=== PATIENT | male | born 1970 | race Caucasian/White ===

== ENCOUNTER 2016-12-11 17:32 | Inpatient (IN) | payer OTHER ==
[~2016-12-11] VITALS: Ht 167.6 cm; Wt 79.2 kg
[~2016-12-11 17:32] MED LIST: BACL10TA4 PO; DILT60TA94 PO; LISI-420 PO; SERT50TA1 PO
[2016-12-11 17:36] VITALS: BP 152/108
[2016-12-11] MEDS ORDERED: [UNRECOGNIZED DRUG - CODE] PO (18:07)
[2016-12-11] MEDS ORDERED: METO25TA PO (18:07)
[2016-12-11 18:51] LABS: HEMOGLOBIN 14.5 g/dL (12.0-18.0); LYMPHOCYTES % (AUTO) 28.7 % (20.5-51.1); MEAN CORPUSCULAR HEMOGLOBIN 30 pg (27-31); MEAN CORPUSCULAR HGB CONC 32 g/dL (33-37); MEAN CORPUSCULAR VOLUME 93 fL (80-94); NEUTROPHILS % (AUTO) 59.2 % (42.2-75.2); PLATELET COUNT (AUTO) 218 K/uL (140-450); RED CELL DISTRIBUTION WIDTH 12.2 % (11.6-13.7); WHITE BLOOD COUNT (AUTO) 8.5 K/uL (4.8-10.8)
[2016-12-11 18:52] LABS: BASOPHILS # (AUTO) 0.1 K/uL (0.00-0.22); BASOPHILS % (AUTO) 1.3 % (0.0-2.0); EOSINOPHILS # (AUTO) 0.3 K/uL (0-0.4); LYMPHOCYTES # (AUTO) 2.4 K/uL (2.0-11.5); MONOCYTES # (AUTO) 0.7 K/uL (0.8-1.0); MONOCYTES % (AUTO) 7.8 % (1.7-9.3)
[2016-12-11 19:03] LABS: ANION GAP 11.9 (8-16); CALCIUM 8.8 mg/dL (8.5-10.1); CARBON DIOXIDE 29.1 mmol/L (21-32); CREATININE 1.2 mg/dL (0.6-1.3); TOTAL BILIRUBIN 0.6 mg/dL (0.0-1.0); TOTAL PROTEIN, SERUM 7.7 g/dL (6.4-8.2)
[2016-12-11 19:04] LABS: ALBUMIN 4.3 g/dL (3.4-5.0)
[2016-12-11 19:10] LABS: INR 1.1 (0.8-1.2); PARTIAL THROMBOPLASTIN TIME 26.3 secs (22-35.6); PROTHROMBIN TIME 10.3 secs (10.8-13.4)
[2016-12-11] MEDS ORDERED: ASPIRIN 325 MG TAB PO ONE (19:35)
[2016-12-11] MEDS ORDERED: ACETAMINOPHEN 325 MG TAB PO PRN (19:50)
[2016-12-11] MEDS ORDERED: HYDROcodone/APAP 5/325 MG 1 TAB TAB PO PRN (19:50)
[2016-12-11] MEDS ORDERED: ONDANSETRON 4 MG/2 ML VIAL IVP PRN (19:50)
[2016-12-11] MEDS ORDERED: BACLOFEN 10 MG TAB PO PRN (19:55)
[2016-12-11] MEDS: NACL 0.9% 1,000 ML IV SCH (20:25)
[2016-12-11 20:27] LABS: APPEARANCE,URINE CLEAR (CLEAR); BILIRUBIN,URINE NEGATIVE (NEGATIVE); BLOOD, URINE TRACE-L (NEGATIVE); COLOR,URINE YELLOW (YELLOW); LEUKOCYTE ESTERASE ,URINE NEGATIVE (NEGATIVE); NITRITE, URINE NEGATIVE (NEGATIVE); PROTEIN,URINE NEGATIVE (NEGATIVE); UGLUCOSE NEGATIVE (NEGATIVE); UROBILINOGEN,URINE 0.2 EU/dL (0.2 - 1)
[2016-12-11 20:51] LABS: BACTERIA,URINE RARE /HPF (None Seen); MUCUS,URINE 3+ /LPF (None Seen); RBC,URINE 0-3 /HPF (0-5); SQUAMOUS EPITHELIAL CELL,UR 0-3 /LPF (0-3 (FEW)); WBC,URINE 0-3 /HPF (0-5)
[2016-12-11 21:09] LABS: CHOL/HDL RATIO 6.1 (1-4.5)
[2016-12-11 21:09] LABS: AMPHETAMINE, URINE NEGATIVE ng/ml (NEG <=1000); BARBITURATE, URINE NEGATIVE ng/ml (NEG <=200); BENZODIAZEPINE, URINE NEGATIVE ng/mL (NEG <=200); CANNABINOID, URINE NEGATIVE ng/mL (NEG <=50); COCAINE, URINE NEGATIVE ng/mL (NEG <=300); OPIATE, URINE NEGATIVE ng/mL (NEG <=2000); PHENCYCLIDINE SCREEN,URINE NEGATIVE ng/mL (NEG <=25)
[2016-12-11 21:20] LABS: FREE T4 (FREE THYROXINE) 0.75 ng/dL (0.76-1.46); THYROID STIMULATING HORMONE 2.84 uIU/mL (0.34-3.76)
[2016-12-12] VITALS: BP 114/74
[2016-12-12 04:00] VITALS: BP 116/76
[2016-12-12] MEDS: NACL 0.9% 1,000 ML IV SCH ×2 (04:06→13:25)
[2016-12-12 06:56] LABS: ALBUMIN 3.6 g/dL (3.4-5.0); ANION GAP 8.9 (8-16); CALCIUM 7.9 mg/dL (8.5-10.1); CARBON DIOXIDE 29.9 mmol/L (21-32); PHOSPHORUS 3.4 mg/dL (2.5-4.9); POTASSIUM 3.8 mmol/L (3.5-5.1); TOTAL BILIRUBIN 0.5 mg/dL (0.0-1.0); TOTAL PROTEIN, SERUM 6.9 g/dL (6.4-8.2)
[2016-12-12 07:02] LABS: BASOPHILS # (AUTO) 0.2 K/uL (0.00-0.22); BASOPHILS % (AUTO) 2.1 % (0.0-2.0); EOSINOPHILS # (AUTO) 0.3 K/uL (0-0.4); EOSINOPHILS % (AUTO) 4.2 % (0.0-4.0); HEMATOCRIT 40.8 % (36-52); HEMOGLOBIN 13.8 g/dL (12.0-18.0); LYMPHOCYTES # (AUTO) 2.5 K/uL (2.0-11.5); LYMPHOCYTES % (AUTO) 31.7 % (20.5-51.1); MEAN CORPUSCULAR HEMOGLOBIN 31 pg (27-31); MEAN CORPUSCULAR HGB CONC 34 g/dL (33-37); MEAN CORPUSCULAR VOLUME 91 fL (80-94); MONOCYTES # (AUTO) 0.9 K/uL (0.8-1.0); MONOCYTES % (AUTO) 10.7 % (1.7-9.3); NEUTROPHILS # (AUTO) 4.1 K/uL (1.8-7.7); NEUTROPHILS % (AUTO) 51.3 % (42.2-75.2); PLATELET COUNT (AUTO) 195 K/uL (140-450); RED BLOOD CELL COUNT(AUTO) 4.48 MIL/uL (4.20-6.10); RED CELL DISTRIBUTION WIDTH 12.2 % (11.6-13.7)
[2016-12-12 08:00] VITALS: BP 129/90
[2016-12-12] MEDS: ATORVASTATIN 20 MG TAB PO SCH (08:00)
[2016-12-12] MEDS: ASPIRIN 81 MG TAB.CHEW PO SCH (08:00)
[2016-12-12] MEDS: METOPROLOL 50 MG TAB PO SCH ×2 (08:01→17:02)
[2016-12-12] MEDS ORDERED: LISINOPRIL 20 MG TAB PO SCH (09:00)
[2016-12-12 12:00] VITALS: BP 134/90
[2016-12-12 16:00] VITALS: BP 135/86
[2016-12-12] MEDS ORDERED: ALBUTEROL SULFATE/IPRATROPIU 3 ML SOL IH PRN (17:25)
[2016-12-12] MEDS ORDERED: MECLIZINE 25 MG TAB PO PRN (17:55)
[2016-12-12] MEDS: ALBUTEROL SULFATE/IPRATROPIU 3 ML SOL IH SCH (18:57)
[2016-12-12 20:00] VITALS: BP 125/80
[2016-12-12] MEDS: LISINOPRIL 20 MG TAB PO SCH (20:03)
[2016-12-13] VITALS: BP 118/76
[2016-12-13] MEDS: ALBUTEROL SULFATE/IPRATROPIU 3 ML SOL IH SCH ×2 (01:16→07:34)
[2016-12-13 04:00] VITALS: BP 123/78
[2016-12-13 06:14] LABS: BASOPHILS # (AUTO) 0.2 K/uL (0.00-0.22); BASOPHILS % (AUTO) 1.9 % (0.0-2.0); EOSINOPHILS # (AUTO) 0.3 K/uL (0-0.4); HEMATOCRIT 41.9 % (36-52); HEMOGLOBIN 13.9 g/dL (12.0-18.0); LYMPHOCYTES # (AUTO) 2.3 K/uL (2.0-11.5); LYMPHOCYTES % (AUTO) 26.9 % (20.5-51.1); MEAN CORPUSCULAR HEMOGLOBIN 30 pg (27-31); MEAN CORPUSCULAR HGB CONC 33 g/dL (33-37); MEAN CORPUSCULAR VOLUME 91 fL (80-94); MONOCYTES # (AUTO) 0.7 K/uL (0.8-1.0); MONOCYTES % (AUTO) 7.7 % (1.7-9.3); NEUTROPHILS # (AUTO) 5.2 K/uL (1.8-7.7); NEUTROPHILS % (AUTO) 60.5 % (42.2-75.2); PLATELET COUNT (AUTO) 183 K/uL (140-450); RED BLOOD CELL COUNT(AUTO) 4.61 MIL/uL (4.20-6.10); RED CELL DISTRIBUTION WIDTH 11.9 % (11.6-13.7); WHITE BLOOD COUNT (AUTO) 8.7 K/uL (4.8-10.8)
[2016-12-13 06:36] LABS: ANION GAP 12.9 (8-16); CALCIUM 8.1 mg/dL (8.5-10.1); CARBON DIOXIDE 27.2 mmol/L (21-32); CREATININE 1.1 mg/dL (0.6-1.3); POTASSIUM 4.1 mmol/L (3.5-5.1)
[2016-12-13 06:42] LABS: MAGNESIUM 1.8 mg/dL (1.8-2.4); PHOSPHORUS 3.9 mg/dL (2.5-4.9)
[2016-12-13 08:00] VITALS: BP 123/81
[2016-12-13] MEDS ORDERED: METOPROLOL 50 MG TAB PO SCH (08:00)
[2016-12-13] MEDS: ATORVASTATIN 20 MG TAB PO SCH (08:30)
[2016-12-13] MEDS: LISINOPRIL 20 MG TAB PO SCH (08:30)
[2016-12-13] MEDS: ASPIRIN 81 MG TAB.CHEW PO SCH (08:31)
[2016-12-13 09:09] LABS: T4 (THYROXINE) 6.6 ug/dL (4.5-12.0)
[2016-12-13] MEDS ORDERED: MECL-272 PO (10:42)
[2016-12-13] MEDS ORDERED: ATOR20TA40 PO (10:42)
[2016-12-13] MEDS ORDERED: ASPI81CT27 PO (10:42)
[2016-12-13 12:44] LABS: HEMOGLOBIN A1C 5.8 % (4.8-5.6)
== END 2016-12-13 12:30 | disposition home or self-care (01) | DRG 65 ==
LOC: MED 17:32 → MTU 20:01
PROVIDERS: ADMIT Family Medicine; ATTEND Family Medicine
DX: I63.9 Cerebral infarction, unspecified (principal); I69.354 Hemiplegia and hemiparesis following cerebral infarction affecting left non-dominant side; J45.909 Unspecified asthma, uncomplicated; G90.9 Disorder of the autonomic nervous system, unspecified; I10 Essential (primary) hypertension; J44.9 Chronic obstructive pulmonary disease, unspecified; M62.838 Other muscle spasm; E78.5 Hyperlipidemia, unspecified
CPT/HCPCS: 36415; 70450; 71010; 80048; 80053; 80305; 81001; 82040; 83036; 83735; 84100; 84436; 84439; 84443; 84479; 84484; 85025; 85610; 85730; 87081; 93880; 94640; 97110; 99285; J7030; J7620; Q0092

== ENCOUNTER 2017-12-24 12:40 | Inpatient (IN) | payer OTHER ==
[~2017-12-24] VITALS: Ht 167.6 cm; Wt 87.1 kg
[~2017-12-24 12:40] MED LIST changes: +AMLO5TAB PO; +ATOR20TA40 PO; +CITA20TA15 PO; -DILT60TA94 PO; +ELA25 PO; +MECL-272 PO; +METO25TA PO; +NAPR-1641 PO; -SERT50TA1 PO; +WARF6TAB PO
[2017-12-24 12:53] VITALS: BP 138/90
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
[2017-12-24 14:34] LABS: BASOPHILS # (AUTO) 0.1 K/uL (0.00-0.22); BASOPHILS % (AUTO) 0.9 % (0.0-2.0); EOSINOPHILS # (AUTO) 0.2 K/uL (0-0.4); EOSINOPHILS % (AUTO) 3.1 % (0.0-4.0); HEMATOCRIT 41.9 % (36-52); LYMPHOCYTES # (AUTO) 2.4 K/uL (2.0-11.5); MEAN CORPUSCULAR HEMOGLOBIN 30 pg (27-31); MEAN CORPUSCULAR HGB CONC 34 g/dL (33-37); MEAN CORPUSCULAR VOLUME 90.9 fL (80-94); MONOCYTES # (AUTO) 0.7 K/uL (0.8-1.0); MONOCYTES % (AUTO) 9.6 % (1.7-9.3); NEUTROPHILS # (AUTO) 3.7 K/uL (1.8-7.7); NEUTROPHILS % (AUTO) 52.4 % (42.2-75.2); PLATELET COUNT (AUTO) 199 K/uL (140-450); RED BLOOD CELL COUNT(AUTO) 4.61 MIL/uL (4.20-6.10); RED CELL DISTRIBUTION WIDTH 13.2 % (11.6-13.7)
[2017-12-24 14:43] LABS: ANION GAP 10.5 (8-16); CARBON DIOXIDE 30.1 mmol/L (21-32); CREATININE 1.1 mg/dL (0.7-1.3); POTASSIUM 4.6 mmol/L (3.5-5.1)
[2017-12-24 14:50] LABS: ALBUMIN 4.1 g/dL (3.4-5.0); TOTAL BILIRUBIN 0.6 mg/dL (0.0-1.0)
--- NOTE | 2017-12-24 14:50 | NUR ---
Pt resting comfortably on the hospital bed at this time with at the bedside.
[2017-12-24 15:08] LABS: PROTHROMBIN TIME 15.4 secs (10.8-13.4)
[2017-12-24 15:26] LABS: APPEARANCE,URINE CLEAR (CLEAR); BILIRUBIN,URINE NEGATIVE (NEGATIVE); BLOOD, URINE NEGATIVE (NEGATIVE); COLOR,URINE YELLOW (YELLOW); LEUKOCYTE ESTERASE ,URINE NEGATIVE (NEGATIVE); NITRITE, URINE NEGATIVE (NEGATIVE); PH,URINE 5.5 (5.0-9.0); UGLUCOSE NEGATIVE (NEGATIVE)
[2017-12-24] MEDS ORDERED: ACETAMINOPHEN 325 MG TAB PO PRN (15:35)
[2017-12-24] MEDS ORDERED: HYDROcodone/APAP 7.5/325 MG 1 TAB PO PRN (15:35)
[2017-12-24] MEDS ORDERED: DOCUSATE SODIUM 100 MG GELCAP PO PRN (15:35)
[2017-12-24] MEDS ORDERED: ONDANSETRON 4 MG/2 ML VIAL IM/IVP PRN (15:35)
--- NOTE | 2017-12-24 15:58 | NUR ---
Pt resting comfortably in the bed at this time. Pt needs met. Will continue to monitor.
[2017-12-24] MEDS ORDERED: MECLIZINE 25 MG TAB PO PRN (16:10)
[2017-12-24 16:20] LABS: CHOL/HDL RATIO 3.2 (1-4.5); FREE T4 (FREE THYROXINE) 2.07 ng/dL (0.76-1.46); PHOSPHORUS 4.9 mg/dL (2.5-4.9); THYROID STIMULATING HORMONE 2.25 uIU/mL (0.34-3.74)
[2017-12-24] MEDS ORDERED: BACLOFEN 10 MG TAB PO SCH (17:00)
[2017-12-24] MEDS ORDERED: HYDR200T94 PO (17:05)
[2017-12-24] MEDS ORDERED: SYN.05 PO (17:05)
[2017-12-24] MEDS ORDERED: ALBUTEROL SULFATE/IPRATROPIU 3 ML SOL IH PRN (17:10)
--- NOTE | 2017-12-24 17:25 | NUR ---
Patient will be admitted to care of [facility] Charge nurse. Admited to Tele. Will go to room 111B. Belongings list completed. Pt tolerated transition well.
--- NOTE | 2017-12-24 17:42 | NUR ---
RECEIVED NEW PT FROM ER UNDER THE CARE OF DR VICTORIA WITH A DX OF SYNCOPE . PATIENT A/OX4 NO S/S OF RESP DISTRESS NOTED ABLE TO MAKE NEEDS KNOWN . IV SITE LEFT AC GAUGE 20 INTACT AND PATIENT. SMALL SKIN TEAR ON HEAD NOTED S/P FALL AT HOME . UNIT ORIENTATION GIVEN SAFETY HAS BEEN TAUGHT ,BED ALARM ON. PLAN OF CARE DISCUSSED WITH THE PATIENT VITALS STABLE WILL CONTINUE TO MONITOR.
[2017-12-24] MEDS: METOPROLOL 25 MG TAB PO SCH (17:54)
[2017-12-24] MEDS: NACL 0.9% 1,000 ML IV SCH (17:54)
--- NOTE | 2017-12-24 17:58 | NUR ---
DUE MEDS GIVEN TOLERATED WELL
--- NOTE | 2017-12-24 18:15 | NUR ---
RECEIVED REPORT AT PT BEDSIDE FROM DAY SHIFT CLINICAL DIETITIAN ALEM, FOR CONTINUITY OF CARE. PATIENT IS AWAKE, A/OX4, ON ROOM AIR. ABLE TO MAKE NEEDS KNOWN, ABLE TO FOLLOW COMMANDS. PT HAS SKIN TEAR AT THE TOP OF HIS HEAD, THE REST OF SKIN IS INTACT, WARM AND DRY. PATIENT HAS PERIPHERAL IV SITE TO LEFT AC, ASYMPTOMATIC, INTACT, PATENT. SR ON MONITOR, RESPIRATIONS EVEN AND UNLABORED. DISCUSSED PLAN OF CARE WITH PT, PT VERBALIZED UNDERSTANDING. PT STABLE, NO SIGNS OF DISTRESS NOTED AT THIS TIME. BED IN LOWEST POSITION, CALL LIGHT WITHIN REACH. WILL CONTINUE TO MONITOR.
[2017-12-24 20:00] VITALS: BP 125/85
--- NOTE | 2017-12-24 20:11 | NUR ---
PATIENT AWAKE AND ALERT. FAMILY AT BEDSIDE. BREATH SOUNDS CLEAR. PATIENT HAS NO COMPLAINTS OF SOB. O2 SAT 96% ON ROOM AIR. NO TX INDICATED AT THIS TIME. WILL CONTINUE TO MONITOR.
[2017-12-24] MEDS: ATORVASTATIN 20 MG TAB PO SCH (21:03)
[2017-12-24] MEDS: AMITRIPTYLINE 25 MG TAB PO SCH (21:04)
[2017-12-24] MEDS: LISINOPRIL 20 MG TAB PO SCH (21:05)
[2017-12-24] MEDS: HYDROXYCHLOROQUINE 200 MG TAB PO SCH (21:05)
[2017-12-24 22:32] LABS: BARBITURATE, URINE NEG. ng/ml (NEG <=200); BENZODIAZEPINE, URINE NEG. ng/mL (NEG <=200); CANNABINOID, URINE NEG. ng/mL (NEG <=50); COCAINE, URINE NEG. ng/mL (NEG <=300); OPIATE, URINE NEG. ng/mL (NEG <=2000); PHENCYCLIDINE SCREEN,URINE NEG. ng/mL (NEG <=25)
--- NOTE | 2017-12-24 22:40 | NUR ---
PT STABLE, NO SIGNS OF DISTRESS NOTED AT THIS TIME. BED IN LOWEST POSITION, CALL LIGHT WITHIN REACH. WILL CONTINUE TO MONITOR.
[2017-12-25] VITALS: BP 120/71
--- NOTE | 2017-12-25 | NUR ---
VITAL SIGNS WITHIN NORMAL LIMITES. PT STABLE, NO SIGNS OF DISTRESS NOTED AT THIS TIME. BED IN LOWEST POSITION, CALL LIGHT WITHIN REACH. WILL CONTINUE TO MONITOR.
[2017-12-25] MEDS: NACL 0.9% 1,000 ML IV SCH ×3 (01:47→21:58)
--- NOTE | 2017-12-25 02:35 | NUR ---
PT RESTING IN BED. PT IS VERY EASILY AWAKENED, NO SIGNS OF DISTRESS NOTED AT THIS TIME. BED IN LOWEST POSITION, CALL LIGHT WITHIN REACH. WILL CONTINUE TO MONITOR.
[2017-12-25 04:00] VITALS: BP 115/74
--- NOTE | 2017-12-25 04:00 | NUR ---
VITAL SIGNS WITHIN NORMAL LIMITS. PT STABLE, NO SIGNS OF DISTRESS NOTED AT THIS TIME. BED IN LOWEST POSITION, CALL LIGHT WITHIN REACH. WILL CONTINUE TO MONITOR PATIENT.
[2017-12-25] MEDS: LEVOTHYROXINE 0.05 MG TAB PO SCH (06:02)
[2017-12-25 06:19] LABS: T4 (THYROXINE) 6.6 ug/dL (4.5-12.0)
[2017-12-25 07:08] LABS: BASOPHILS # (AUTO) 0.1 K/uL (0.00-0.22); BASOPHILS % (AUTO) 1.2 % (0.0-2.0); EOSINOPHILS # (AUTO) 0.2 K/uL (0-0.4); EOSINOPHILS % (AUTO) 3.6 % (0.0-4.0); HEMATOCRIT 40.2 % (36-52); HEMOGLOBIN 13.5 g/dL (12.0-18.0); LYMPHOCYTES # (AUTO) 2.1 K/uL (2.0-11.5); LYMPHOCYTES % (AUTO) 35.4 % (20.5-51.1); MEAN CORPUSCULAR HEMOGLOBIN 31 pg (27-31); MEAN CORPUSCULAR HGB CONC 34 g/dL (33-37); MEAN CORPUSCULAR VOLUME 91.3 fL (80-94); MONOCYTES # (AUTO) 0.7 K/uL (0.8-1.0); MONOCYTES % (AUTO) 11.1 % (1.7-9.3); NEUTROPHILS % (AUTO) 48.7 % (42.2-75.2); PLATELET COUNT (AUTO) 168 K/uL (140-450); RED CELL DISTRIBUTION WIDTH 13.4 % (11.6-13.7); WHITE BLOOD COUNT (AUTO) 6.1 K/uL (4.8-10.8)
--- NOTE | 2017-12-25 07:30 | NUR ---
RECEIVED PT REPORT FROM JEWELRY ENAMELER RN. PATIENT IS AWAKE, ALERT, OX4. NO S/S OF RESP DISTRESS NOTED. ABLE TO MAKE NEEDS KNOWN. IV SITE LEFT AC 20G, INFUSING WELL, INTACT AND PATIENT. 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 ACCORDING TO PT, HE HAD STROKE 7 YRS AGO, RECENT FALL WHEN WALKING DOWN STAIRS. BUE/BLE STRENGTH EQUAL. NO FACIAL DROOPING. SPEECH WAS ONLY A LITTLE BIT UNCLEAR, PT STATED BECAUSE JAW SHIFT FROM THE FIRST STROKE EPISODE. FALL PRECAUTION IN PLACE. PLAN OF CARE DISCUSSED, PT VERBALIZED UNDERSTANDING. CALL LIGHT WITHIN REACH. WILL CONTINUE TO MONITOR.
--- NOTE | 2017-12-25 07:31 | NUR ---
ENDORSED PT TO DAY SHIFT RN FOR CONTINUITY OF CARE. PT IN STABLE CONDITION.
[2017-12-25 07:44] LABS: ANION GAP 11.5 (8-16); CARBON DIOXIDE 27.1 mmol/L (21-32); CREATININE 1.1 mg/dL (0.7-1.3); POTASSIUM 4.6 mmol/L (3.5-5.1)
[2017-12-25 08:00] VITALS: BP 121/89
[2017-12-25] MEDS: METOPROLOL 25 MG TAB PO SCH ×2 (08:00→16:32)
[2017-12-25] MEDS: LISINOPRIL 20 MG TAB PO SCH ×2 (08:23→20:49)
[2017-12-25] MEDS: amLODIPine 5 MG TAB PO SCH (08:23)
[2017-12-25] MEDS ORDERED: PANTOPRAZOLE 40 MG TABEC PO SCH (09:00)
[2017-12-25] MEDS ORDERED: NON-FORMULARY ITEM (Warfarin Sodium* (Coumadin*) 6 MG) PO SCH (09:00)
--- NOTE | 2017-12-25 10:10 | NUR ---
PATIENT HAS BEEN SCREENED AND CATEGORIZED MODERATE NUTRITION RISK. PATIENT WILL BE SEEN WITHIN 3-5 DAYS OF ADMISSION. 12/27/17 - 12/29/[address]
--- NOTE | 2017-12-25 11:20 | NUR ---
PT AMB WITH PHYSICAL THERAPIST, NO S/S OF DISTRESS NO ROOM AIR.
[2017-12-25 12:00] VITALS: BP 128/87
--- NOTE | 2017-12-25 14:28 | NUR ---
CM NOTE INITIAL REVIEW FAXED TO [facility] / FAX# [phone], ATTN: JAVAN #[phone]
[2017-12-25 16:00] VITALS: BP 126/86
[2017-12-25] MEDS ORDERED: WARFARIN 5 MG TAB PO SCH (17:00)
[2017-12-25] MEDS ORDERED: WARFARIN 1 MG TAB PO SCH (17:00)
--- NOTE | 2017-12-25 19:30 | NUR ---
ENDORSED PT TO ROTOR ASSEMBLER RN. PT IN STABLE CONDITION.
--- NOTE | 2017-12-25 19:31 | NUR ---
RECEIVED REPORT AT PT BEDSIDE FROM DAY SHIFT RN, FOR CONTINUITY OF CARE. PATIENT IS AWAKE, A/OX4, ON ROOM AIR. ABLE TO MAKE NEEDS KNOWN, ABLE TO FOLLOW COMMANDS. PT HAS SKIN TEAR AT THE TOP OF HIS HEAD, THE REST OF SKIN IS INTACT, WARM AND DRY. PATIENT HAS PERIPHERAL IV SITE TO LEFT AC, ASYMPTOMATIC, INTACT, PATENT. SR ON MONITOR, RESPIRATIONS EVEN AND UNLABORED. DISCUSSED PLAN OF CARE WITH PT, PT VERBALIZED UNDERSTANDING. PT STABLE, NO SIGNS OF DISTRESS NOTED AT THIS TIME. BED IN LOWEST POSITION, CALL LIGHT WITHIN REACH. WILL CONTINUE TO MONITOR.
[2017-12-25 20:00] VITALS: BP 114/87
[2017-12-25] MEDS: ATORVASTATIN 20 MG TAB PO SCH (20:48)
[2017-12-25] MEDS: AMITRIPTYLINE 25 MG TAB PO SCH (20:48)
[2017-12-25] MEDS: HYDROXYCHLOROQUINE 200 MG TAB PO SCH (20:49)
--- NOTE | 2017-12-25 20:49 | NUR ---
ADMINISTERED SCHEDULED MEDICATIONS, PT TOLERATED WELL. PT IN STABLE CONDITION, BED IN LOWEST POSITION, CALL LIGHT WITHIN REACH. WILL CONTINUE TO MONITOR PT.
--- NOTE | 2017-12-25 22:08 | NUR ---
PATIENT ON ROOM AIR. SPO2 95, HEART RATE 68, B/S: CLEAR. PATIENT STATES THAT HE IS NOT SOB OR IN ANY RESPIRATORY DISTRESS.
[2017-12-26] VITALS: BP 125/84
--- NOTE | 2017-12-26 | NUR ---
VITAL SIGNS WITHIN NORMAL LIMITS. PT STABLE, NO SIGNS OF DISTRESS NOTED AT THIS TIME. BED IN LOWEST POSITION, CALL LIGHT WITHIN REACH. WILL CONTINUE TO MONITOR.
--- NOTE | 2017-12-26 02:12 | NUR ---
PT STABLE, NO SIGNS OF DISTRESS NOTED AT THIS TIME. BED IN LOWEST POSITION, CALL LIGHT WITHIN REACH. WILL CONTINUE TO MONITOR.
[2017-12-26 04:00] VITALS: BP 119/73
[2017-12-26] MEDS: LEVOTHYROXINE 0.05 MG TAB PO SCH (06:11)
[2017-12-26 06:39] LABS: BASOPHILS # (AUTO) 0.1 K/uL (0.00-0.22); BASOPHILS % (AUTO) 0.9 % (0.0-2.0); EOSINOPHILS # (AUTO) 0.2 K/uL (0-0.4); EOSINOPHILS % (AUTO) 3.3 % (0.0-4.0); HEMATOCRIT 39.6 % (36-52); HEMOGLOBIN 13.2 g/dL (12.0-18.0); LYMPHOCYTES # (AUTO) 2.5 K/uL (2.0-11.5); LYMPHOCYTES % (AUTO) 35.2 % (20.5-51.1); MEAN CORPUSCULAR HEMOGLOBIN 30 pg (27-31); MEAN CORPUSCULAR HGB CONC 33 g/dL (33-37); MEAN CORPUSCULAR VOLUME 90.7 fL (80-94); MONOCYTES # (AUTO) 0.7 K/uL (0.8-1.0); NEUTROPHILS # (AUTO) 3.6 K/uL (1.8-7.7); NEUTROPHILS % (AUTO) 50.6 % (42.2-75.2); PLATELET COUNT (AUTO) 173 K/uL (140-450); RED BLOOD CELL COUNT(AUTO) 4.36 MIL/uL (4.20-6.10); RED CELL DISTRIBUTION WIDTH 13.4 % (11.6-13.7); WHITE BLOOD COUNT (AUTO) 7.1 K/uL (4.8-10.8)
--- NOTE | 2017-12-26 06:50 | NUR ---
PT STATES IV IS HURTING, STOPPED INFUSION AND WILL TRY TO START NEW IV BEFORE END OF SHIFT.
--- NOTE | 2017-12-26 07:30 | NUR ---
RECEIVED PT REPORT FROM HALL MANAGER RN. PATIENT IS AWAKE, ALERT, OX4. NO S/S OF RESP DISTRESS NOTED. ABLE TO MAKE NEEDS KNOWN. IV SITE LEFT AC 20G, INFUSING WELL, INTACT AND PATIENT. 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 FALL PRECAUTION IN PLACE. PLAN OF CARE DISCUSSED, PT VERBALIZED UNDERSTANDING. CALL LIGHT WITHIN REACH. WILL CONTINUE TO MONITOR.
--- NOTE | 2017-12-26 07:31 | NUR ---
ENDORSED PT TO DAY SHIFT RN FOR CONTINUITY OF CARE. PT IN STABLE CONDITION. ENDORSED NEW IV START TO DAY SHIFT NURSE.
[2017-12-26 07:35] LABS: ANION GAP 10.4 (8-16); CARBON DIOXIDE 26.4 mmol/L (21-32); POTASSIUM 3.8 mmol/L (3.5-5.1)
[2017-12-26] MEDS: NACL 0.9% 1,000 ML IV SCH (07:35)
[2017-12-26 07:42] LABS: MAGNESIUM 1.9 mg/dL (1.8-2.4); PHOSPHORUS 3.8 mg/dL (2.5-4.9)
[2017-12-26 08:00] VITALS: BP 126/79
[2017-12-26] MEDS: METOPROLOL 25 MG TAB PO SCH (08:00)
[2017-12-26 08:30] LABS: PROTHROMBIN TIME 12.4 secs (10.8-13.4)
[2017-12-26] MEDS ORDERED: PANTOPRAZOLE 40 MG TABEC PO SCH ×2 (09:00)
[2017-12-26] MEDS: LISINOPRIL 20 MG TAB PO SCH (09:03)
[2017-12-26] MEDS: amLODIPine 5 MG TAB PO SCH (09:03)
[2017-12-26] MEDS ORDERED: WARF6TAB PO (10:38)
[2017-12-26] MEDS ORDERED: ASPI81CT89 PO (10:38)
--- NOTE | 2017-12-26 12:20 | NUR ---
PT DISCHARGED PER MD ORDER. DISCHARGE INSTRUCTIONS AND MED TEACHING GIVEN. WARFARIN CHANGED FROM 6MG TO 7MG AND NEED TO START FROM TONIGHT. MADE PT AWARE OF THE SCHEDULE MD APPOINTMENT AND THE NEED RECHECK INR DURING OFFICE VISIT. NO S/S OF ACUTE DISTRESS AT THIS TIME. DENIES PAIN, DIZZINESS, AND NAUSEA. IV DC'D, TIP INTACT, PRESSURE APPLIED. TELE REMOVED. WRIST BAND REMOVED. PT LEFT WITH ALL HIS BELONGING AND LEFT WITH HIS . WALKED WITH PT TO LOBBY.
--- NOTE | 2017-12-26 13:44 | NUR ---
FAXED CONCURRENT REVIEW TO [facility] [phone] PHONE JAVAN [phone]
== END 2017-12-26 12:20 | disposition home or self-care (01) | DRG 74 ==
LOC: MED 12:40 → MTU 15:11 → UNDOADMIN 15:11
PROVIDERS: ADMIT Family Medicine Sports Medicine; ATTEND Family Medicine Sports Medicine
DX: G90.9 Disorder of the autonomic nervous system, unspecified (principal); D68.61 Antiphospholipid syndrome; S09.90XA Unspecified injury of head, initial encounter; I69.354 Hemiplegia and hemiparesis following cerebral infarction affecting left non-dominant side; E83.51 Hypocalcemia; W10.8XXA Fall (on) (from) other stairs and steps, initial encounter; I10 Essential (primary) hypertension; J44.9 Chronic obstructive pulmonary disease, unspecified; M06.9 Rheumatoid arthritis, unspecified; Y93.89 Activity, other specified; Y92.89 Other specified places as the place of occurrence of the external cause; Y99.8 Other external cause status; Z79.01 Long term (current) use of anticoagulants; Z79.1 Long term (current) use of non-steroidal anti-inflammatories (NSAID); Z79.899 Other long term (current) drug therapy
CPT/HCPCS: 36415; 70450; 71045; 80048; 80053; 80305; 81003; 82150; 83036; 83605; 83690; 83735; 83880; 84100; 84436; 84439; 84443; 84479; 84484; 85025; 85610; 85730; 87081; 93005; 93880; 94640; 99291; J7030; Q0092

== ENCOUNTER 2018-04-04 02:32 | Emergency (ER) | payer OTHER ==
[~2018-04-04] VITALS: Ht 167.6 cm; Wt 86.2 kg
[~2018-04-04 02:32] MED LIST changes: +ASPI81CT89 PO; +HYDR200T94 PO; +SYN.05 PO
[2018-04-04 02:43] VITALS: BP 136/103
--- NOTE | 2018-04-04 02:48 | NUR ---
PT AMBULATED TO ED B03
--- NOTE | 2018-04-04 03:00 | NUR ---
47/M BIB FAMILY/FRIEND, C/O HTN (HIGHEST 162/101), GALLEGOS, NECK PAIN AND CHEST PRESSURE. PT REPORTS 3/10 PAIN AT THIS TIME, GALLEGOS CAUSING THE MOST PAIN. PT AOX4, AMBULATORY, RR EVEN AND UNLABORED. HX STROKE, LUPUS ANTICOAGULANT, ANTIPHOSPHOLID ANTIBODY SYNDROME, RA. NKA. PT PLACED ON MONITOR, BP 156/89, HR 70 AT THIS TIME. ER MADE AWARE.
--- NOTE | 2018-04-04 04:07 | NUR ---
PT RESTING IN BED COMFORTABLY, REPORTS 1/10 PAIN AT THIS TIME. RR EVEN AND UNLABORED. ALL NEEDS MET
[2018-04-04] MEDS ORDERED: ACETAMINOPHEN EXTRA STRENGTH 500 MG TAB PO ONE (04:20)
[2018-04-04 04:35] LABS: BASOPHILS # (AUTO) 0.1 K/uL (0.00-0.22); BASOPHILS % (AUTO) 1.1 % (0.0-2.0); EOSINOPHILS # (AUTO) 0.2 K/uL (0-0.4); EOSINOPHILS % (AUTO) 2.4 % (0.0-4.0); HEMATOCRIT 42.5 % (36-52); HEMOGLOBIN 14.1 g/dL (12.0-18.0); LYMPHOCYTES # (AUTO) 2.1 K/uL (2.0-11.5); LYMPHOCYTES % (AUTO) 31.2 % (20.5-51.1); MEAN CORPUSCULAR HEMOGLOBIN 30 pg (27-31); MEAN CORPUSCULAR HGB CONC 33 g/dL (33-37); MEAN CORPUSCULAR VOLUME 90.8 fL (80-94); MONOCYTES # (AUTO) 0.6 K/uL (0.8-1.0); MONOCYTES % (AUTO) 9.3 % (1.7-9.3); NEUTROPHILS # (AUTO) 3.8 K/uL (1.8-7.7); PLATELET COUNT (AUTO) 175 K/uL (140-450); RED BLOOD CELL COUNT(AUTO) 4.69 MIL/uL (4.20-6.10); RED CELL DISTRIBUTION WIDTH 13.8 % (11.6-13.7); WHITE BLOOD COUNT (AUTO) 6.7 K/uL (4.8-10.8)
[2018-04-04 04:52] LABS: PROTHROMBIN TIME 18.4 secs (10.8-13.4)
[2018-04-04 04:53] LABS: ANION GAP 10.2 (8-16); CARBON DIOXIDE 29.1 mmol/L (21-32); CREATININE 1.4 mg/dL (0.7-1.3); POTASSIUM 5.3 mmol/L (3.5-5.1); TOTAL BILIRUBIN 0.7 mg/dL (0.0-1.0)
[2018-04-04 05:02] LABS: CREATINE KINASE MB 3.1 ng/mL (0-3.6)
--- NOTE | 2018-04-04 05:10 | NUR ---
PT RESTING COMFORTABLY IN BED, RR EVEN AND UNLABORED, VSS, ALL NEEDS MET AT THIS TIME.
[2018-04-04] MEDS ORDERED: LABETALOL 100 MG/20 ML VIAL IVP ONE (05:35)
[2018-04-04] MEDS ORDERED: PHYTONADIONE 10 MG in NACL 0.9% 50 ML IV ONE (05:35)
[2018-04-04] MEDS ORDERED: PHYTONADIONE 10 MG/ML AMP ONE (05:49)
--- NOTE | 2018-04-04 06:01 | NUR ---
PT RESTING COMFORTABLY IN BED, DENIES PAIN. IV STARTED ON L AC, ADMINISTERED DUE MEDS WITH EDUCATION. ALL NEEDS MET AT THIS TIME.
--- NOTE | 2018-04-04 06:10 | NUR ---
Patient to be transferred to [facility] ER. Is being transferred due to HEADACHE, ICH. Receiving facility has accepting physician DR. AGUILAR and available space. ER physician has signed transfer form. Patient or responsible republican has agreed to transfer and signed form. Patient belongings inventoried and will be sent with patient. Copy of nursing notes, lab reports, EKG, Physicians Orders and X-rays to be sent with patient. Report called to TALAT FUNEZ at receiving facility. [facility] ambulance service at bedside for transfer
[2018-04-04 06:26] VITALS: BP 135/97
--- NOTE | 2018-04-04 06:27 | NUR ---
PT TAKEN BY [facility] AT THIS TIME.
== END 2018-04-04 06:27 | disposition short-term general hospital (02) ==
LOC: MED 02:32
DX: I61.5 Nontraumatic intracerebral hemorrhage, intraventricular (principal); D68.61 Antiphospholipid syndrome; M06.9 Rheumatoid arthritis, unspecified; Z79.82 Long term (current) use of aspirin; Z79.899 Other long term (current) drug therapy; Z86.73 Personal history of transient ischemic attack (TIA), and cerebral infarction without residual deficits
CPT/HCPCS: 36415; 70450; 71045; 80053; 82550; 82553; 83690; 84484; 85025; 85610; 86886; 86900; 86901; 93005; 96365; 96375; 99285; J3430; J3490

== ENCOUNTER 2019-02-21 00:45 | Emergency (ER) | payer OTHER ==
[~2019-02-21] VITALS: Ht 167.6 cm; Wt 93.0 kg
[~2019-02-21 00:45] MED LIST changes: +ASPI-1718 PO; -ASPI81CT89 PO
[2019-02-21 01:04] VITALS: BP 120/76
--- NOTE | 2019-02-21 01:04 | NUR ---
PT TAKEN TO BED 4
--- NOTE | 2019-02-21 01:10 | NUR ---
48 yo male comes to ED for c/o LUQ pain. pt states pain started since 02/19/19 and is sharp in nature. pt denies fever chills. pt aaox4 following commands, r sided weakness from previous CVA noted, no new deficits noted. s1 s2 no cp/sob. abd soft non distended. pt voiding clear yellow, skin intact. pmh: htn, high cholesterol, neuropathy, depression, RA, antiphospholipd synidrome, Lupus nka
[2019-02-21] MEDS ORDERED: ACETAMINOPHEN EXTRA STRENGTH 500 MG TAB PO ONE (01:15)
--- NOTE | 2019-02-21 01:15 | NUR ---
Dr. Cordoba examining patient.
[2019-02-21 02:27] LABS: BASOPHILS # (AUTO) 0.1 K/uL (0.00-0.22); BASOPHILS % (AUTO) 1.2 % (0.0-2.0); EOSINOPHILS # (AUTO) 0.3 K/uL (0-0.4); EOSINOPHILS % (AUTO) 3.8 % (0.0-4.0); HEMOGLOBIN 14.2 g/dL (12.0-18.0); LYMPHOCYTES # (AUTO) 2.5 K/uL (2.0-11.5); LYMPHOCYTES % (AUTO) 33.9 % (20.5-51.1); MEAN CORPUSCULAR HEMOGLOBIN 31 pg (27-31); MEAN CORPUSCULAR HGB CONC 34 g/dL (33-37); MEAN CORPUSCULAR VOLUME 91.4 fL (80-94); MONOCYTES # (AUTO) 0.9 K/uL (0.8-1.0); MONOCYTES % (AUTO) 11.6 % (1.7-9.3); NEUTROPHILS # (AUTO) 3.6 K/uL (1.8-7.7); NEUTROPHILS % (AUTO) 49.5 % (42.2-75.2); PLATELET COUNT (AUTO) 203 K/uL (140-450); RED CELL DISTRIBUTION WIDTH 13.5 % (11.6-13.7); WHITE BLOOD COUNT (AUTO) 7.4 K/uL (4.8-10.8)
[2019-02-21 02:43] LABS: ANION GAP 11.5 (8-16); CARBON DIOXIDE 26.3 mmol/L (21-32); POTASSIUM 3.8 mmol/L (3.5-5.1)
[2019-02-21 02:44] LABS: ALBUMIN 3.9 g/dL (3.4-5.0); TOTAL BILIRUBIN 0.4 mg/dL (0.0-1.0)
[2019-02-21] MEDS ORDERED: WARF6TAB PO (02:58)
[2019-02-21] MEDS ORDERED: ATOR40TA PO (02:58)
[2019-02-21 04:30] VITALS: BP 120/62
--- NOTE | 2019-02-21 04:30 | NUR ---
Patient discharged with v/s stable. Written and verbal after care instructions given and explained. Patient verbalized understanding. Ambulatory with steady gait. All questions addressed prior to discharge. Advised to follow up with PMD.
== END 2019-02-21 04:30 | disposition home or self-care (01) ==
LOC: MED 00:45
DX: R07.89 Other chest pain (principal); I10 Essential (primary) hypertension; Z86.73 Personal history of transient ischemic attack (TIA), and cerebral infarction without residual deficits; Z79.899 Other long term (current) drug therapy
CPT/HCPCS: 36415; 71260; 80053; 84484; 85025; 93005; 99284

== ENCOUNTER 2019-07-19 22:36 | Emergency (ER) | payer OTHER ==
[~2019-07-19] VITALS: Ht 167.6 cm; Wt 86.2 kg
[~2019-07-19 22:36] MED LIST changes: -ASPI-1718 PO; -ATOR20TA40 PO; +ATOR40TA PO; -CITA20TA15 PO; -MECL-272 PO; -NAPR-1641 PO
[2019-07-19 22:39] VITALS: BP 133/81
--- NOTE | 2019-07-19 22:40 | NUR ---
TO BED # 04 AMBULATORY
--- NOTE | 2019-07-19 22:51 | NUR ---
Dr. Prasad examining patient.
[2019-07-19] MEDS ORDERED: ACETAMINOPHEN EXTRA STRENGTH 500 MG TAB PO ONE (22:55)
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
[2019-07-19 23:27] LABS: PROTHROMBIN TIME 21.2 secs (10.8-13.4)
--- NOTE | 2019-07-19 23:31 | NUR ---
PT TAKEN TO CT
--- NOTE | 2019-07-19 23:43 | NUR ---
PT RETURN FROM CT
--- NOTE | 2019-07-20 00:04 | NUR ---
Juan C villeda in [place] - 07/20/19 at 0055 by [id number] D/C HOME WITHOUT SIGNING D/C PAPERWORKS.
[2019-07-20 00:49] VITALS: BP 128/91
--- NOTE | 2019-07-20 00:50 | NUR ---
D/CPatient discharged with v/s stable. Written and verbal after care instructions given and explained. Patient alert, oriented and verbalized understanding of instructions. Ambulatory with steady gait. All questions addressed prior to discharge. ID band removed. Patient advised to follow up with PMD. Rx of TYLENOL 500MG given. Patient educated on indication of medication including possible reaction and side effects. Opportunity to ask questions provided and answered.
== END 2019-07-20 00:50 | disposition home or self-care (01) ==
LOC: MED 22:36
DX: M61.9 Calcification and ossification of muscle, unspecified (principal); S00.83XA Contusion of other part of head, initial encounter; J45.909 Unspecified asthma, uncomplicated; I10 Essential (primary) hypertension; E05.90 Thyrotoxicosis, unspecified without thyrotoxic crisis or storm; Z86.73 Personal history of transient ischemic attack (TIA), and cerebral infarction without residual deficits; Z79.899 Other long term (current) drug therapy; Z79.01 Long term (current) use of anticoagulants; W22.8XXA Striking against or struck by other objects, initial encounter; Y92.89 Other specified places as the place of occurrence of the external cause; Y93.89 Activity, other specified; Y99.8 Other external cause status
CPT/HCPCS: 36415; 70450; 85610; 99284

== ENCOUNTER 2019-08-05 21:20 | Emergency (ER) | payer OTHER ==
[~2019-08-05] VITALS: Ht 167.6 cm; Wt 92.1 kg
[2019-08-05 21:25] VITALS: BP 168/58
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
--- NOTE | 2019-08-05 21:35 | NUR ---
PMH: STROKE (2 ISCHEMIC AND 1 HEMORRAHGE)
[2019-08-05] MEDS ORDERED: HYDROcodone/APAP 5/325 MG 1 TAB TAB PO ONE (21:45)
[2019-08-05] MEDS ORDERED: ACETAMINOPHEN EXTRA STRENGTH 500 MG TAB PO ONE (21:50)
--- NOTE | 2019-08-05 21:51 | NUR ---
TRANSFER TO CT VIA WHEELCHAIR.
--- NOTE | 2019-08-05 21:51 | NUR ---
TRANSFER TO WELL VIA WHEELCHAIR.
[2019-08-05 22:48] VITALS: BP 168/58
== END 2019-08-05 22:48 | disposition home or self-care (01) ==
LOC: MED 21:20
DX: S20.219A Contusion of unspecified front wall of thorax, initial encounter (principal); S30.1XXA Contusion of abdominal wall, initial encounter; R10.9 Unspecified abdominal pain; J45.909 Unspecified asthma, uncomplicated; I10 Essential (primary) hypertension; E05.90 Thyrotoxicosis, unspecified without thyrotoxic crisis or storm; Z79.899 Other long term (current) drug therapy; V49.9XXA Car occupant (driver) (passenger) injured in unspecified traffic accident, initial encounter; Y93.89 Activity, other specified; Y92.481 Parking lot as the place of occurrence of the external cause; Y99.8 Other external cause status; Z86.79 Personal history of other diseases of the circulatory system
CPT/HCPCS: 71100; 99284

== ENCOUNTER 2019-08-28 22:02 | Emergency (ER) | payer OTHER ==
[~2019-08-28] VITALS: Ht 167.6 cm; Wt 92.1 kg
[2019-08-28 22:19] VITALS: BP 138/73
--- NOTE | 2019-08-28 22:28 | NUR ---
PT AMBULATED TO THE LOBBY WITH VSS.
--- NOTE | 2019-08-28 23:40 | NUR ---
PT AMBULATED TO ER BED 03
--- NOTE | 2019-08-28 23:45 | NUR ---
49y/o male c/o hematuria x today at 1100. gu: burning, blood while urinating. delarosa, change of appetite, no fever. bilat flank pain. vss. no v,d. a &o x4. nka.
[2019-08-29 00:10] VITALS: BP 138/73
--- NOTE | 2019-08-29 00:10 | NUR ---
dr. voss did discharge teaching and med education. all questions and concerns answered.
[2019-08-29 01:11] LABS: BILIRUBIN,URINE NEGATIVE (NEGATIVE); BLOOD, URINE 2+ (NEGATIVE); COLOR,URINE YELLOW (YELLOW); LEUKOCYTE ESTERASE ,URINE 2+ (NEGATIVE); NITRITE, URINE NEGATIVE (NEGATIVE); UGLUCOSE NEGATIVE (NEGATIVE)
[2019-08-29 01:27] LABS: APPEARANCE,URINE SLIGHTLY HAZY (CLEAR)
[2019-08-29 01:30] LABS: WBC,URINE TOO MANY TO COUNT /HPF (0-5)
[2019-08-29 01:33] LABS: HYALINE CASTS, URINE 0-10 /LPF (None Seen)
== END 2019-08-29 00:10 | disposition home or self-care (01) ==
LOC: MED 22:02
DX: N39.0 Urinary tract infection, site not specified (principal); J45.909 Unspecified asthma, uncomplicated; I10 Essential (primary) hypertension; E07.9 Disorder of thyroid, unspecified; Z79.899 Other long term (current) drug therapy
CPT/HCPCS: 81001; 87086; 99283

== ENCOUNTER 2019-09-20 18:24 | Emergency (ER) | payer OTHER ==
[~2019-09-20] VITALS: Ht 167.6 cm; Wt 91.6 kg
[2019-09-20 18:58] VITALS: BP 150/88
--- NOTE | 2019-09-20 20:40 | NUR ---
49/M BIB FAMILY/FRIEND, C/O BLOOD IN URINE, SINCE 4 DAYS AGO. PT ALSO C/O MILD DYSURIA/BURNING WITH URINATION. PT REPORTS MILD LOWER BACK PAIN. PT'S FAMILY REPORTS THAT PT HAS BEEN TREATED FOR UTI AND YEAST INFECTION ON PENIS RECENTLY THIS MONTH. PT ALSO C/O R FOOT PAIN, DENIES TRUAMA/INJURY, NO DEFORMITY, SWELLING OR ERYTHEMA. PT AWAKE AND ALERT, SKIN NORMAL COLOR WARM AND DRY, RR EVEN AND UNLABORED. HX CVA, ANTIPHOSPHOLIPID ANTIBODY SYNDROME, LUPUS ANTICOAGULANT, RA, HTN RX METOPROLOL, PLAQUENIL, COUMADIN, AMLODIPINE, LISINOPRIL, CYMBALTA, BACLOFEN
[2019-09-20 21:01] LABS: APPEARANCE,URINE CLOUDY (CLEAR); BILIRUBIN,URINE 1+ (NEGATIVE); BLOOD, URINE 3+ (NEGATIVE); COLOR,URINE AMBER (YELLOW); LEUKOCYTE ESTERASE ,URINE NEGATIVE (NEGATIVE); NITRITE, URINE POSITIVE (NEGATIVE); UGLUCOSE NEGATIVE (NEGATIVE)
[2019-09-20 21:04] LABS: BASOPHILS # (AUTO) 0.1 K/uL (0.00-0.22); BASOPHILS % (AUTO) 0.6 % (0.0-2.0); EOSINOPHILS # (AUTO) 0.3 K/uL (0-0.4); EOSINOPHILS % (AUTO) 3.9 % (0.0-4.0); HEMATOCRIT 45.6 % (36-52); HEMOGLOBIN 15.2 g/dL (12.0-18.0); LYMPHOCYTES # (AUTO) 2.6 K/uL (2.0-11.5); LYMPHOCYTES % (AUTO) 30.6 % (20.5-51.1); MEAN CORPUSCULAR HEMOGLOBIN 30 pg (27-31); MEAN CORPUSCULAR HGB CONC 33 g/dL (33-37); MEAN CORPUSCULAR VOLUME 91.1 fL (80-94); MONOCYTES # (AUTO) 0.9 K/uL (0.8-1.0); MONOCYTES % (AUTO) 10.2 % (1.7-9.3); NEUTROPHILS # (AUTO) 4.6 K/uL (1.8-7.7); NEUTROPHILS % (AUTO) 54.7 % (42.2-75.2); PLATELET COUNT (AUTO) 212 K/uL (140-450); RBC,URINE TOO NUMEROUS TO COUN /HPF (0-5); RED BLOOD CELL COUNT(AUTO) 5.01 MIL/uL (4.20-6.10); RED CELL DISTRIBUTION WIDTH 13.4 % (11.6-13.7); WBC,URINE 0-5 /HPF (0-5); WHITE BLOOD COUNT (AUTO) 8.5 K/uL (4.8-10.8)
[2019-09-20 21:17] LABS: ANION GAP 8.9 (8-16); CARBON DIOXIDE 30.1 mmol/L (21-32); CREATININE 1.1 mg/dL (0.7-1.3)
[2019-09-20 21:22] LABS: TOTAL BILIRUBIN 0.5 mg/dL (0.0-1.0)
[2019-09-20 21:25] LABS: PROTHROMBIN TIME 52.3 secs (10.8-13.4)
[2019-09-20 21:45] VITALS: BP 139/108
== END 2019-09-20 21:45 | disposition home or self-care (01) ==
LOC: MED 18:24
DX: R31.9 Hematuria, unspecified (principal); M79.671 Pain in right foot; J45.909 Unspecified asthma, uncomplicated; I10 Essential (primary) hypertension; E11.9 Type 2 diabetes mellitus without complications; Z85.9 Personal history of malignant neoplasm, unspecified
CPT/HCPCS: 36415; 73610; 80053; 81001; 81025; 85025; 85610; 85730; 99284

== ENCOUNTER 2020-01-02 19:01 | Emergency (ER) | payer OTHER ==
[~2020-01-02] VITALS: Ht 167.6 cm; Wt 97.5 kg
[2020-01-02 19:07] VITALS: BP 132/89
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
[2020-01-02] MEDS ORDERED: ACETAMINOPHEN EXTRA STRENGTH 500 MG TAB PO ONE (19:30)
--- NOTE | 2020-01-02 19:35 | NUR ---
AT BEDSIDE EXAMINING PT
--- NOTE | 2020-01-02 19:40 | NUR ---
PT'S PHONED AND LEFT HER CONTACT INFORMATION NITA CARVALHO [phone]
[2020-01-02 19:43] VITALS: BP 132/89
== END 2020-01-02 19:43 | disposition home or self-care (01) ==
LOC: MED 19:01
DX: S01.511A Laceration without foreign body of lip, initial encounter (principal); S60.221A Contusion of right hand, initial encounter; S40.212A Abrasion of left shoulder, initial encounter; J45.909 Unspecified asthma, uncomplicated; I10 Essential (primary) hypertension; E07.9 Disorder of thyroid, unspecified; Z79.899 Other long term (current) drug therapy; W01.0XXA Fall on same level from slipping, tripping and stumbling without subsequent striking against object, initial encounter; Y93.67 Activity, basketball; Y92.89 Other specified places as the place of occurrence of the external cause; Y99.8 Other external cause status
CPT/HCPCS: 99283

== ENCOUNTER 2020-03-17 16:37 | Emergency (ER) | payer OTHER ==
[~2020-03-17] VITALS: Ht 167.6 cm; Wt 95.7 kg
[2020-03-17 16:44] VITALS: BP 129/81
--- NOTE | 2020-03-17 16:51 | NUR ---
AMBULATED TO BED 2 WITH STEADY GAIT
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
[2020-03-17] MEDS ORDERED: ELA25 PO (17:07)
[2020-03-17] MEDS ORDERED: HYDR200T5 PO (17:07)
[2020-03-17] MEDS ORDERED: BACL10TA4 PO ×2 (17:07→17:11)
[2020-03-17] MEDS ORDERED: DULO30EC PO (17:07)
[2020-03-17] MEDS ORDERED: LISI30TA6 PO (17:07)
[2020-03-17] MEDS ORDERED: SYN.05 PO (17:07)
[2020-03-17] MEDS ORDERED: METO50TE2 PO (17:07)
[2020-03-17] MEDS ORDERED: AMLO5TAB PO (17:07)
[2020-03-17] MEDS ORDERED: ATOR40TA PO (17:07)
[2020-03-17] MEDS ORDERED: WARF6TAB PO ×2 (17:07→17:15)
[2020-03-17] MEDS ORDERED: ACETAMINOPHEN 325 MG TAB PO ONE (17:10)
[2020-03-17 17:52] VITALS: BP 129/81
--- NOTE | 2020-03-17 17:52 | NUR ---
Patient discharged with v/s stable. Written and verbal after care instructions given and explained. Patient alert, oriented and verbalized understanding of instructions. Ambulatory with steady gait. All questions addressed prior to discharge. ID band removed. Patient advised to follow up with PMD. Rx of ACETAMINOPHEN 500MG given. Patient educated on indication of medication including possible reaction and side effects. Opportunity to ask questions provided and answered.
== END 2020-03-17 17:52 | disposition home or self-care (01) ==
LOC: MED 16:37
DX: S29.012A Strain of muscle and tendon of back wall of thorax, initial encounter (principal); E03.9 Hypothyroidism, unspecified; I10 Essential (primary) hypertension; I63.50 Cerebral infarction due to unspecified occlusion or stenosis of unspecified cerebral artery; J45.909 Unspecified asthma, uncomplicated; M06.9 Rheumatoid arthritis, unspecified; Z79.899 Other long term (current) drug therapy; X58.XXXA Exposure to other specified factors, initial encounter; Y93.89 Activity, other specified; Y92.89 Other specified places as the place of occurrence of the external cause; Y99.8 Other external cause status
CPT/HCPCS: 99282

== ENCOUNTER 2021-02-09 00:04 | Emergency (ER) | payer OTHER ==
[~2021-02-09] VITALS: Ht 167.6 cm; Wt 93.4 kg
[~2021-02-09 00:04] MED LIST changes: +AMIT25TA40 PO; +DULO30EC PO; -ELA25 PO; +HYDR200T5 PO; -HYDR200T94 PO; -LISI-420 PO; +LISI30TA6 PO; -METO25TA PO; +METO50TE2 PO; -WARF6TAB PO; +WARF6TAB41 PO
[2021-02-09 00:15] VITALS: BP 125/75
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
--- NOTE | 2021-02-09 00:40 | NUR ---
Dr. Moreno examining patient.
--- NOTE | 2021-02-09 01:05 | NUR ---
LAB AT BEDSIDE.
[2021-02-09 01:11] LABS: BASOPHILS # (AUTO) 0.1 K/uL (0.00-0.22); BASOPHILS % (AUTO) 0.7 % (0.0-2.0); EOSINOPHILS # (AUTO) 0.3 K/uL (0-0.4); EOSINOPHILS % (AUTO) 2.6 % (0.0-4.0); HEMATOCRIT 39.6 % (36-52); HEMOGLOBIN 13.3 g/dL (12.0-18.0); LYMPHOCYTES % (AUTO) 19.7 % (20.5-51.1); MEAN CORPUSCULAR HEMOGLOBIN 31 pg (27-31); MEAN CORPUSCULAR HGB CONC 34 g/dL (33-37); MEAN CORPUSCULAR VOLUME 91.1 fL (80-94); MONOCYTES # (AUTO) 1.5 K/uL (0.8-1.0); MONOCYTES % (AUTO) 14.8 % (1.7-9.3); NEUTROPHILS # (AUTO) 6.4 K/uL (1.8-7.7); NEUTROPHILS % (AUTO) 62.2 % (42.2-75.2); PLATELET COUNT (AUTO) 316 K/uL (140-450); RED BLOOD CELL COUNT(AUTO) 4.35 MIL/uL (4.20-6.10); RED CELL DISTRIBUTION WIDTH 13.5 % (11.6-13.7); WHITE BLOOD COUNT (AUTO) 10.3 K/uL (4.8-10.8)
[2021-02-09 01:27] LABS: PROTHROMBIN TIME 24.2 secs (10.8-13.4)
[2021-02-09 01:29] LABS: ALBUMIN 3.5 g/dL (3.4-5.0); ANION GAP 16.4 (8-16); CARBON DIOXIDE 25.7 mmol/L (21-32); CREATININE 1.6 mg/dL (0.6-1.3); POTASSIUM 4.1 mmol/L (3.5-5.1); TOTAL BILIRUBIN 0.5 mg/dL (0.0-1.0)
--- NOTE | 2021-02-09 01:36 | NUR ---
PT TO CT VIA WC
--- NOTE | 2021-02-09 01:46 | NUR ---
PT RETURN FROM CT
--- NOTE | 2021-02-09 02:22 | NUR ---
Patient appears to be resting comfortably in bed. Vital Signs within normal limits. Respirations even and unlabored.
[2021-02-09] MEDS ORDERED: PRED20TA5 PO (02:28)
[2021-02-09] MEDS ORDERED: ACET-8386 PO (02:31)
[2021-02-09] MEDS ORDERED: predniSONE 20 MG TAB PO ONE (02:35)
--- NOTE | 2021-02-09 02:53 | NUR ---
Patient discharged with v/s stable. Written and verbal after care instructions given and explained. Patient alert, oriented and verbalized understanding of instructions. Ambulatory with steady gait. All questions addressed prior to discharge. ID band removed. Patient advised to follow up with PMD. Rx of deltasone, and hydrocodon-acetaminophen 5-325 given. Patient educated on indication of medication including possible reaction and side effects. Opportunity to ask questions provided and answered.
[2021-02-09 02:55] VITALS: BP 104/65
== END 2021-02-09 02:53 | disposition home or self-care (01) ==
LOC: MED 00:04
DX: S09.90XA Unspecified injury of head, initial encounter (principal); M10.072 Idiopathic gout, left ankle and foot; J45.909 Unspecified asthma, uncomplicated; I10 Essential (primary) hypertension; E05.90 Thyrotoxicosis, unspecified without thyrotoxic crisis or storm; E78.5 Hyperlipidemia, unspecified; Z86.73 Personal history of transient ischemic attack (TIA), and cerebral infarction without residual deficits; Z79.899 Other long term (current) drug therapy; W19.XXXA Unspecified fall, initial encounter; Y93.89 Activity, other specified; Y92.89 Other specified places as the place of occurrence of the external cause; Y99.8 Other external cause status
CPT/HCPCS: 36415; 70450; 80053; 85025; 85610; 85651; 86140; 99284; J7512

== ENCOUNTER 2021-08-16 19:50 | Emergency (ER) | payer OTHER ==
[~2021-08-16] VITALS: Ht 167.6 cm; Wt 93.9 kg
[~2021-08-16 19:50] MED LIST changes: +ACET-8386 PO; +PRED20TA5 PO
[2021-08-16 20:24] VITALS: BP 132/84
--- NOTE | 2021-08-16 22:56 | NUR ---
PT TAKEN TO ER BED 03
[2021-08-16 23:55] VITALS: BP 132/84
== END 2021-08-16 23:55 | disposition home or self-care (01) ==
LOC: MED 19:50
DX: S09.90XA Unspecified injury of head, initial encounter (principal); R42 Dizziness and giddiness; J45.909 Unspecified asthma, uncomplicated; I10 Essential (primary) hypertension; E07.9 Disorder of thyroid, unspecified; Z86.73 Personal history of transient ischemic attack (TIA), and cerebral infarction without residual deficits; Z79.899 Other long term (current) drug therapy; W22.8XXA Striking against or struck by other objects, initial encounter; Y93.89 Activity, other specified; Y92.89 Other specified places as the place of occurrence of the external cause; Y99.8 Other external cause status
CPT/HCPCS: 70450; 99284

== ENCOUNTER 2022-01-08 08:51 | Emergency (ER) | payer OTHER ==
[~2022-01-08] VITALS: Ht 167.6 cm; Wt 92.1 kg
[2022-01-08 09:00] VITALS: BP 117/54
--- NOTE | 2022-01-08 09:06 | NUR ---
PT AMB TO BED 4.
--- NOTE | 2022-01-08 09:12 | NUR ---
DR. ABDUL BEDSIDE EVALUATING PT
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
--- NOTE | 2022-01-08 09:24 | NUR ---
LAB AT BEDSIDE
--- NOTE | 2022-01-08 09:43 | NUR ---
PATIENT WAS TAKEN TO IMAGING VIA [place].
--- NOTE | 2022-01-08 09:50 | NUR ---
PT TAKEN TO ER BED [address]
[2022-01-08 09:53] LABS: BASOPHILS # (AUTO) 0.1 K/uL (0.00-0.22); BASOPHILS % (AUTO) 0.9 % (0.0-2.0); EOSINOPHILS # (AUTO) 0.2 K/uL (0-0.4); HEMATOCRIT 42.5 % (36-52); HEMOGLOBIN 14.2 g/dL (12.0-18.0); LYMPHOCYTES # (AUTO) 1.8 K/uL (2.0-11.5); LYMPHOCYTES % (AUTO) 26.3 % (20.5-51.1); MEAN CORPUSCULAR HEMOGLOBIN 31 pg (27-31); MEAN CORPUSCULAR HGB CONC 34 g/dL (33-37); MONOCYTES # (AUTO) 0.8 K/uL (0.8-1.0); MONOCYTES % (AUTO) 11.3 % (1.7-9.3); NEUTROPHILS % (AUTO) 58.5 % (42.2-75.2); PLATELET COUNT (AUTO) 198 K/uL (140-450); RED BLOOD CELL COUNT(AUTO) 4.57 MIL/uL (4.20-6.10); RED CELL DISTRIBUTION WIDTH 13.2 % (11.6-13.7); WHITE BLOOD COUNT (AUTO) 6.8 K/uL (4.8-10.8)
[2022-01-08 10:11] LABS: PROTHROMBIN TIME 13.8 secs (10.8-13.4)
--- NOTE | 2022-01-08 10:37 | NUR ---
DR. ABDUL AT BEDSIDE RE-EVALUATING PATIENT.
--- NOTE | 2022-01-08 10:46 | NUR ---
COPY OF CT SCAN WAS HANDED TO PATIENT ALONG WITH DISCHARGE PAPERWORK.
--- NOTE | 2022-01-08 10:46 | NUR ---
Patient discharged with v/s stable. Written and verbal after care instructions given. Patient verbalized understanding. Ambulatory with steady gait. All questions addressed prior to discharge. Advised to follow up with PMD.
== END 2022-01-08 10:46 | disposition home or self-care (01) ==
LOC: MED 08:51
DX: S00.01XA Abrasion of scalp, initial encounter (principal); J45.909 Unspecified asthma, uncomplicated; I10 Essential (primary) hypertension; E05.90 Thyrotoxicosis, unspecified without thyrotoxic crisis or storm; Z86.73 Personal history of transient ischemic attack (TIA), and cerebral infarction without residual deficits; Z79.899 Other long term (current) drug therapy; Z79.891 Long term (current) use of opiate analgesic; Z79.01 Long term (current) use of anticoagulants; W18.39XA Other fall on same level, initial encounter; Y92.89 Other specified places as the place of occurrence of the external cause; Y93.89 Activity, other specified; Y99.8 Other external cause status
CPT/HCPCS: 36415; 70450; 85025; 85610; 99284

== ENCOUNTER 2022-04-18 23:48 | Emergency (ER) | payer OTHER ==
[~2022-04-18] VITALS: Ht 167.6 cm; Wt 93.0 kg
[2022-04-19 00:08] VITALS: BP 153/95
--- NOTE | 2022-04-19 04:38 | NUR ---
PT TAKEN TO BED 1
--- NOTE | 2022-04-19 04:45 | NUR ---
CC: ABDOMINAL PAIN 8/10 RADIATES TO THE LEFT LOWER BACK, VOMITING 20 MIN AGO, DIARRHEA, AND STATED CLAMMY STARTED TODAY. STATED HAD CP YESTERDAY, AND STATED POSSIBLE HAVING KIDNEY STONE HX: ASTHMA, 3 STROKE WITH COUMADIN, HTN, HLD
--- NOTE | 2022-04-19 04:47 | NUR ---
Juan C villeda in [facility] - 04/19/22 at [address] Torres examining patient.
--- NOTE | 2022-04-19 04:47 | NUR ---
DR ELLIS AT BEDSIDE FOR EXAM
[2022-04-19] MEDS ORDERED: DICYCLOMINE 20 MG/2 ML VIAL IM ONE (04:50)
--- NOTE | 2022-04-19 05:09 | NUR ---
RETURNED FROM CT
--- NOTE | 2022-04-19 05:20 | NUR ---
UA TO LAB
[2022-04-19 05:35] LABS: APPEARANCE,URINE CLEAR (CLEAR); BILIRUBIN,URINE NEGATIVE (NEGATIVE); BLOOD, URINE 2+ (NEGATIVE); COLOR,URINE YELLOW (YELLOW); LEUKOCYTE ESTERASE ,URINE NEGATIVE (NEGATIVE); NITRITE, URINE NEGATIVE (NEGATIVE); UGLUCOSE NEGATIVE (NEGATIVE)
[2022-04-19 05:39] LABS: RBC,URINE 11-20 (MOD) /HPF (0-5); WBC,URINE 0-5 /HPF (0-5)
[2022-04-19 06:12] LABS: BASOPHILS # (AUTO) 0.1 K/uL (0.00-0.22); EOSINOPHILS # (AUTO) 0.2 K/uL (0-0.4); EOSINOPHILS % (AUTO) 1.6 % (0.0-4.0); MEAN CORPUSCULAR HEMOGLOBIN 31 pg (27-31); MEAN CORPUSCULAR HGB CONC 33 g/dL (33-37); MEAN CORPUSCULAR VOLUME 92.4 fL (80-94); NEUTROPHILS # (AUTO) 6.6 K/uL (1.8-7.7)
[2022-04-19 06:50] LABS: BASOPHILS % (AUTO) 0.6 % (0.0-2.0); HEMATOCRIT 42.5 % (36-52); LYMPHOCYTES # (AUTO) 1.9 K/uL (2.0-11.5); LYMPHOCYTES % (AUTO) 19.8 % (20.5-51.1); MONOCYTES # (AUTO) 0.9 K/uL (0.8-1.0); MONOCYTES % (AUTO) 9.8 % (1.7-9.3); NEUTROPHILS % (AUTO) 68.2 % (42.2-75.2); PLATELET COUNT (AUTO) 197 K/uL (140-450); RED CELL DISTRIBUTION WIDTH 14.1 % (11.6-13.7); WHITE BLOOD COUNT (AUTO) 9.6 K/uL (4.8-10.8)
--- NOTE | 2022-04-19 06:55 | NUR ---
AMBULATED TO BR WITH STEADY GAIT
[2022-04-19 07:16] LABS: ALBUMIN 3.8 g/dL (3.4-5.0); CREATININE 1.2 mg/dL (0.6-1.3); TOTAL BILIRUBIN 0.4 mg/dL (0.0-1.0)
[2022-04-19] MEDS ORDERED: ACET-8386 PO (07:46)
[2022-04-19 08:24] VITALS: BP 117/54
--- NOTE | 2022-04-19 08:25 | NUR ---
Patient discharged with v/s stable. Written and verbal after care instructions ABOUT KIDNEY STONES given and explained. Patient alert, oriented and verbalized understanding of instructions. Ambulatory with steady gait. All questions addressed prior to discharge. ID band removed. Patient advised to follow up with PMD. Rx of NORCO 5-325 given. Patient educated on indication of medication including possible reaction and side effects. Opportunity to ask questions provided and answered.
== END 2022-04-19 08:25 | disposition home or self-care (01) ==
LOC: MED 23:48
DX: R10.12 Left upper quadrant pain (principal); J45.909 Unspecified asthma, uncomplicated; I10 Essential (primary) hypertension; E03.9 Hypothyroidism, unspecified; Z86.73 Personal history of transient ischemic attack (TIA), and cerebral infarction without residual deficits
CPT/HCPCS: 36415; 74176; 80053; 81001; 83690; 85025; 96372; 99284; J0500

== ENCOUNTER 2023-09-27 18:01 | Emergency (ER) | payer OTHER ==
[~2023-09-27] VITALS: Ht 165.1 cm; Wt 89.8 kg
[~2023-09-27 18:01] MED LIST changes: -ACET-8386 PO; +ACET-8905 PO; -AMIT25TA40 PO; +AMIT25TA51 PO; -HYDR200T5 PO; +[UNRECOGNIZED DRUG - CODE] PO
[2023-09-27 18:17] VITALS: BP 111/67; PULSE 62; RESP 16; TEMP 98; O2SAT 95
[2023-09-27] MEDS ORDERED: BACITRACIN OINT 500 UNITS/GM PKT TP ONE ×2 (18:49→18:50)
[2023-09-27] MEDS ORDERED: ACET-8905 PO (20:10)
[2023-09-27 20:15] VITALS: BP 111/67; PULSE 62; RESP 16; TEMP 98; O2SAT 95
== END 2023-09-27 20:15 | disposition home or self-care (01) ==
LOC: MED 18:01
DX: S60.222A Contusion of left hand, initial encounter (principal); S50.812A Abrasion of left forearm, initial encounter; S60.512A Abrasion of left hand, initial encounter; S60.412A Abrasion of right middle finger, initial encounter; S09.90XA Unspecified injury of head, initial encounter; J45.909 Unspecified asthma, uncomplicated; F03.90 Unspecified dementia, unspecified severity, without behavioral disturbance, psychotic disturbance, mood disturbance, and anxiety; I10 Essential (primary) hypertension; E05.90 Thyrotoxicosis, unspecified without thyrotoxic crisis or storm; Z86.73 Personal history of transient ischemic attack (TIA), and cerebral infarction without residual deficits; Z79.899 Other long term (current) drug therapy; Z79.01 Long term (current) use of anticoagulants; W18.39XA Other fall on same level, initial encounter; Y92.89 Other specified places as the place of occurrence of the external cause; Y93.89 Activity, other specified; Y99.8 Other external cause status
CPT/HCPCS: 70450; 73130; 93005; 99284; Q0092

== ENCOUNTER 2023-10-28 22:38 | Emergency (ER) | payer OTHER ==
[~2023-10-28] VITALS: Ht 167.6 cm; Wt 88.0 kg
[2023-10-28 22:40] VITALS: BP 124/81
[2023-10-29] MEDS: HYDROcodone/APAP 5/325 MG 1 TAB TAB PO ONE (00:20)
[2023-10-29 01:18] LABS: BASOPHILS # (AUTO) 0.1 K/uL (0.00-0.22); BASOPHILS % (AUTO) 0.8 % (0.0-2.0); EOSINOPHILS # (AUTO) 0.7 K/uL (0-0.4); EOSINOPHILS % (AUTO) 7.7 % (0.0-4.0); HEMATOCRIT 39.6 % (36-52); HEMOGLOBIN 13.4 g/dL (12.0-18.0); LYMPHOCYTES # (AUTO) 2.1 K/uL (2.0-11.5); LYMPHOCYTES % (AUTO) 23.6 % (20.5-51.1); MEAN CORPUSCULAR HEMOGLOBIN 31 pg (27-31); MEAN CORPUSCULAR HGB CONC 34 g/dL (33-37); MEAN CORPUSCULAR VOLUME 92.3 fL (80-94); MONOCYTES # (AUTO) 1.2 K/uL (0.8-1.0); MONOCYTES % (AUTO) 13.7 % (1.7-9.3); NEUTROPHILS # (AUTO) 4.9 K/uL (1.8-7.7); NEUTROPHILS % (AUTO) 54.2 % (42.2-75.2); PLATELET COUNT (AUTO) 158 K/uL (140-450); RED BLOOD CELL COUNT(AUTO) 4.29 MIL/uL (4.20-6.10); RED CELL DISTRIBUTION WIDTH 14.3 % (11.6-13.7)
[2023-10-29 01:25] LABS: ANION GAP 12.7 (8-16); CALCIUM 8.4 mg/dL (8.5-10.1); CARBON DIOXIDE 28.1 mmol/L (21-32); CREATININE 1.2 mg/dL (0.6-1.3); POTASSIUM 3.8 mmol/L (3.5-5.1)
[2023-10-29 01:29] LABS: INR 2.77 (0.8-1.2); PROTHROMBIN TIME 27.7 secs (10.8-13.4)
[2023-10-29 01:35] LABS: PARTIAL THROMBOPLASTIN TIME 51.7 secs (22-35.6)
[2023-10-29] MEDS: MORPHINE SULFATE 4 MG/ML SYR IM ONE (01:38)
[2023-10-29] MEDS ORDERED: ACET-10509 PO (02:50)
[2023-10-29 03:10] VITALS: BP 113/56; PULSE 63; RESP 16; TEMP 97.8; O2SAT 97
== END 2023-10-29 03:10 | disposition home or self-care (01) ==
LOC: MED 22:38
DX: S52.692A Other fracture of lower end of left ulna, initial encounter for closed fracture (principal); S13.4XXA Sprain of ligaments of cervical spine, initial encounter; S09.90XA Unspecified injury of head, initial encounter; J45.909 Unspecified asthma, uncomplicated; I10 Essential (primary) hypertension; F03.90 Unspecified dementia, unspecified severity, without behavioral disturbance, psychotic disturbance, mood disturbance, and anxiety; Z86.73 Personal history of transient ischemic attack (TIA), and cerebral infarction without residual deficits; Z79.899 Other long term (current) drug therapy; W18.30XA Fall on same level, unspecified, initial encounter; Y93.89 Activity, other specified; Y92.89 Other specified places as the place of occurrence of the external cause; Y99.8 Other external cause status
CPT/HCPCS: 29125; 36415; 70450; 72125; 73080; 73110; 80048; 85025; 85610; 85730; 96372; 99285; J2270; Q0092

== ENCOUNTER 2024-02-22 21:59 | Emergency (ER) | payer OTHER ==
[~2024-02-22] VITALS: Ht 167.6 cm; Wt 84.8 kg
[~2024-02-22 21:59] MED LIST changes: +ACET-10509 PO
[2024-02-22 22:21] VITALS: BP 126/76; PULSE 54; RESP 18; TEMP 97.2; O2SAT 98
[2024-02-22 23:21] VITALS: O2SAT 98
[2024-02-23] MEDS ORDERED: ACET-10509 PO (00:18)
== END 2024-02-23 00:30 | disposition home or self-care (01) ==
LOC: MED 21:59
DX: S63.502A Unspecified sprain of left wrist, initial encounter (principal); J45.909 Unspecified asthma, uncomplicated; I10 Essential (primary) hypertension; Z86.73 Personal history of transient ischemic attack (TIA), and cerebral infarction without residual deficits; Z79.899 Other long term (current) drug therapy; Z79.1 Long term (current) use of non-steroidal anti-inflammatories (NSAID); Z98.890 Other specified postprocedural states; W01.0XXA Fall on same level from slipping, tripping and stumbling without subsequent striking against object, initial encounter; Y93.89 Activity, other specified; Y92.89 Other specified places as the place of occurrence of the external cause; Y99.8 Other external cause status
CPT/HCPCS: 73110; 99283

== ENCOUNTER 2024-04-28 10:38 | Emergency (ER) | payer OTHER ==
[~2024-04-28] VITALS: Ht 167.6 cm; Wt 82.6 kg
[~2024-04-28 10:38] MED LIST changes: -ACET-10509 PO; +ACET500T99 PO
[2024-04-28 10:40] VITALS: BP 94/62; PULSE 56; RESP 16; TEMP 97.4; O2SAT 95
[2024-04-28] MEDS: NACL 0.9% 1,000 ML IV ONE ×2 (11:13→12:39)
[2024-04-28 11:15] LABS: BASOPHILS % (AUTO) 0.5 % (0.0-2.0); EOSINOPHILS # (AUTO) 0.8 K/uL (0-0.4); EOSINOPHILS % (AUTO) 8.5 % (0.0-4.0); HEMATOCRIT 42.2 % (36-52); LYMPHOCYTES # (AUTO) 2.5 K/uL (2.0-11.5); LYMPHOCYTES % (AUTO) 26.2 % (20.5-51.1); MEAN CORPUSCULAR HEMOGLOBIN 31 pg (27-31); MEAN CORPUSCULAR HGB CONC 33 g/dL (33-37); MEAN CORPUSCULAR VOLUME 91.7 fL (80-94); MONOCYTES # (AUTO) 0.6 K/uL (0.8-1.0); MONOCYTES % (AUTO) 6.9 % (1.7-9.3); NEUTROPHILS # (AUTO) 5.4 K/uL (1.8-7.7); NEUTROPHILS % (AUTO) 57.9 % (42.2-75.2); PLATELET COUNT (AUTO) 196 K/uL (140-450); RED CELL DISTRIBUTION WIDTH 14.5 % (11.6-13.7); WHITE BLOOD COUNT (AUTO) 9.4 K/uL (4.8-10.8)
[2024-04-28 11:30] LABS: ANION GAP 13.4 (8-16); CALCIUM 8.6 mg/dL (8.5-10.1); CARBON DIOXIDE 26.4 mmol/L (21-32); CREATININE 1.5 mg/dL (0.6-1.3); POTASSIUM 3.8 mmol/L (3.5-5.1)
[2024-04-28 11:37] LABS: INR 3.37 (0.8-1.2); PROTHROMBIN TIME 33.1 secs (10.8-13.4)
[2024-04-28 13:00] VITALS: BP 121/67; PULSE 54; RESP 16; TEMP 97.4; O2SAT 95
[2024-04-28] MEDS ORDERED: CEPH-588 PO (13:11)
[2024-04-28] MEDS ORDERED: NIRM1TAB9 PO (14:05)
== END 2024-04-28 14:19 | disposition home or self-care (01) ==
LOC: MED 10:38
DX: S51.851A Open bite of right forearm, initial encounter (principal); U07.1 COVID-19; E86.0 Dehydration; N17.9 Acute kidney failure, unspecified; D68.8 Other specified coagulation defects; J45.909 Unspecified asthma, uncomplicated; I10 Essential (primary) hypertension; F03.90 Unspecified dementia, unspecified severity, without behavioral disturbance, psychotic disturbance, mood disturbance, and anxiety; Z98.890 Other specified postprocedural states; Z86.73 Personal history of transient ischemic attack (TIA), and cerebral infarction without residual deficits; Z79.1 Long term (current) use of non-steroidal anti-inflammatories (NSAID); Z79.899 Other long term (current) drug therapy; W54.0XXA Bitten by dog, initial encounter; Y93.89 Activity, other specified; Y92.89 Other specified places as the place of occurrence of the external cause; Y99.8 Other external cause status
CPT/HCPCS: 36415; 80048; 85025; 85610; 87426; 93005; 96360; 96361; 99284; J7030